=== PATIENT | male | born 1970 | race Caucasian/White ===

== ENCOUNTER 2024-02-21 12:13 | Emergency (ER) | payer OTHER ==
--- OUTSIDE RECORDS SUMMARY | 2024-02-21 12:15 | XMS REPORT | Continuity of Care Document ---
Author Name Unknown Address [address] [facility] [address]. [address] [place] [address] [facility] thconnect Address [address] [facility]. 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 Role Phone Roseline JACOB, Forrest Primary Care Physician Roseline JACOB, Forrest Attending Clinician [phone] FORREST DUKES Attending Clinician KATHRYN Adam Attending Clinician Unavailable Xavier ZUNIGA, Rocio Long Attending Clinician BRAYDEN Levy Attending Clinician Unavailable Payers Payer Name Policy Type Policy Number Effective Date Expirati on Date Source [employer] ACO COMM [id number] 2019 00:00:00 [employer] O [id number] 2019 00:00:00 Allergies, Adverse Reactions, Alerts Allergy Name Allergy Type Status Severity Reaction(s) Onset Date Inactive Date Treating Clinician Comments Source NO KNOWN ALLERGIE S SYSTEMIC Active [facility] NO KNOWN ALLERGIE S Drug Class Active [facility] NO KNOWN ALLERGIE S SYSTEMIC Active [facility] ALLERGIE S NOT ON FILE SYSTEMIC Active [facility] NO KNOWN ALLERGIE S SYSTEMIC Active [facility] Social History Social Habit Start Date Stop Date Quantity Comments Source Gender identity 2023-10-15 07:11:58 Identifies as male gender (finding) Leena Delgado Sexual orientation [facility] Sex Assigned At [facility] Tobacco use and exposure 2024-01-20 00:00:00 2024-01-20 00:00:00 Smokeless tobacco non-user [facility] Alcoholic beverage intake 2024-01-20 00:00:00 2024-01-20 00:00:00 Lifetime non-drinker (finding) [facility] History of Social function 2024-01-20 00:00:00 2024-01-20 00:00:00 [facility] Smoking Status Start Date Stop Date Source Unknown if ever [facility] Never smoked tobacco [facility] Medications Ordered Medication Name Filled Medication Name Start Date Stop Date Current Medication? Ordering Clinician Indication Dosage Frequency Signature (SIG) Comments Components Source lisinopril (Prinivil) 20 MG tablet lisinopril (Prinivil) 20 MG tablet 01-19 00:00: 00 Yes [id number] 20mg QD Take 1 tablet by mouth 1 time each day. [facility] Immunizations Ordered Immunization Name Filled Immunization Name Date Status Comments Source Zoster, Recombinant Zoster, Recombinant 00:00:00 Completed [facility] Moderna COVID-19 Vaccine Moderna COVID-19 Vaccine 2021-04-17 00:00:00 Completed Moderna COVID-19 Vaccine Moderna COVID-19 Vaccine 2021-03-20 00:00:00 Completed Tdap Tdap 2016-07-25 00:00:00 Completed [facility] Vital Signs Vital Name Observation Time Observation Value Comments S clara Systolic blood pressure 2024-01-20 09:12:00 159 mm[Hg] [facility] Diastolic blood pressure 2024-01-20 09:12:00 93 mm[Hg] [facility] Heart rate 2024-01-20 09:12:00 65 /min [facility] Body temperature 2024-01-20 09:12:00 36.72 Catherine [facility] Body height 2024-01-20 09:12:00 172.7 cm [facility] Body weight 2024-01-20 09:12:00 93.214 kg [facility] BMI 2024-01-20 09:12:00 31.25 kg/m2 [facility] Systolic blood pressure 2024-01-20 09:12:00 159 mm[Hg] [facility] Diastolic blood pressure 2024-01-20 09:12:00 93 mm[Hg] [facility] Heart rate 2024-01-20 09:12:00 65 /min [facility] Body temperature 2024-01-20 09:12:00 36.72 Catherine [facility] Body height 2024-01-20 09:12:00 172.7 cm [facility] Body weight 2024-01-20 09:12:00 93.214 kg [facility] BMI 2024-01-20 09:12:00 31.25 kg/m2 [facility] Procedures Procedure Date / Time Performed Performing Clinician Source PSA 2024-01-20 00:00:00 [facility] Cologuard? colon cancer screening 2024-01-20 00:00:00 [facility] Hemoglobin A1c 2024-01-20 00:00:00 Jakob delgadillo [facility] Comprehensive Metabolic Panel 2024-01-20 00:00:00 [facility] Complete Blood Count w/Diff and Platelet 2024-01-20 00:00:00 [facility] Lipid Panel w/calculated LDL 2024-01-20 00:00:00 [facility] Hepatitis C Antibody w/HCV RNA PCR if Indicated 2024-01-20 00:00:00 [facility] Encounters Start Date/Time End Date/Time Encounter Type Admission Type Attending [facility] Care Department Encounter ID Source 2024-01-20 09:00:00 2024-01-20 09:45:47 Consult Forrest Dukes [facility] [id number] Ranjana lusi [facility] 2024-01-20 08:59:47 2024-01-20 09:45:47 Outpatient Elective [facility] [id number] [facility] 2021-04-17 00:00:00 2021-04-17 00:00:00 Outpatient [facility] [id number] [facility] 2021-03-20 00:00:00 2021-03-20 00:00:00 Outpatient [facility]OVID[facility] [id number] [facility] 2020-01-23 16:45:00 2020-01-23 16:45:00 Outpatient R [facility] [id number] [facility] 2020-01-22 11:30:00 2020-01-22 11:30:00 Outpatient R [facility] [id number] [facility] 2020-01-18 09:45:00 2020-01-18 09:45:00 Outpatient [facility] [id number] [facility] 2020-01-14 11:30:00 2020-01-14 11:30:00 Outpatient R KATHRYN AGUIRRE [facility] [id number] [facility] 2020-01-14 11:30:00 2020-01-14 11:30:00 Outpatient [facility] [id number] [facility] 2020-01-02 00:00:00 2020-01-02 00:00:00 Telephone Rocio Park [facility] [id number] [facility] 2020-01-01 12:15:00 2020-01-01 12:15:00 Outpatient BRAYDEN LUKE [facility] [id number] [facility] Notes Date/Time Note Provider Source 2024-01-20 09:47:43 [id number] KPJ2ZzLJsdIRdas1v6M Djy9QTeJR7ngF210EXejCLxn8KapSMGbIz27117 10-29-27T09:47:43 * + +| Reason | Comments |+ + ==+| Annual Exam | Physical Exam, fasting. |+ + --+96688-5Vcwotm for VisitLNReason for [id number] 2.2.12AVAvailable for patient vinaZplpnlxCoetxctmtLLKZy15 Section NarrativeNARRATIVEFormatted C-CDA narrative textMHIEEPICMemorial Wdmvbvb049 [facility] [id number] RPZLJFI8228-34-43B79:47:43 [facility] 2024-01-20 09:47:43 [id number] od4a9X9P+52x6WeKbtg AJ07NDEEKiq6/cq3aR8H2ZckBnxlPIvawPj2907 10-29-27T09:47:43 * Forrest Dukes MD - 01/20/2024 9:00 AM CDT Subjective Patient ID: Adrienne Calixto is a 53 y.o. male who presents for Annual Exam (Physical Exam, fasting. ). HPI 53-year-old male past medical history hypertension, gout presents today for physical. Patient also wanted to establish care for hypertension. Was previously on metoprolol but discontinued due to worsening gout?. 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 Endorses father with history of heart attack at age of 74, patient follows a regular diet ,utilizes his job for exercise Review of Systems Constitutional Symptoms: no fever, no fatigue Cardiovascular: no chest pain, no SOB Respiratory:, no cough, Gastrointestinal: no NVD, no constipation, no abdominal pain Genitourinary: no dysuria, no incontinence Musculoskeletal: no myalgia Integumentary: no rash Neurological: no weakness, no headache Objective Physical Exam VITALS: Reviewed. WEIGHT/BMI reviewed. GEN: Healthy appearing, well-developed PSYCH: Good Judgment. AOx3. CV: RRR, no m/r/g. LUNGS: CTAB HEENT: No palpable thyroid nodules appreciated Abdomen: Normoactive bowel sound nontender palpation all quadrants Assessment & Plan Physical exam Continue adequate diet and exercise - Up-to-date with Tdap vaccination - Pending labs [PSA, A1c, CBC, CMP, lipid panel and one-time hep C screen] Orders: PSA; Future Hemoglobin A1c; Future Comprehensive Metabolic Panel; Future Complete Blood Count w/Diff and Platelet; Future Lipid Panel w/calculated LDL; Future Hepatitis C Antibody w/HCV RNA PCR if Indicated; Future Primary hypertension -Start patient on lisinopril 20 mg p.o. daily - Blood pressure log follow-up 6 weeks Orders: lisinopril (Prinivil) 20 MG tablet; Take 1 tablet by mouth 1 time each day. Need for vaccination - Pending shingles vaccination #1Orders: Zoster, Recombinant (Shingrix) Colon cancer screening - Pending Cologuard Orders: Cologuard? colon cancer screening; Future 85091-1Pyivgbi of Present IllnessLNProgress [id number] A5746AXRotduelae for patient dznsZaeslrrBfcoppkjoXYVXd10 Section NarrativeNARRATIVEFormatted C-CDA narrative textMHIEEPICMemorial Gnryxry285 [facility] [id number] FETSYFC0928-78-12E73:47:43 [facility] 2024-01-20 09:47:43 [id number] qKycYBbXv1pqD8uzOFc pNeR0rM2RNXe3QxjLZp6FkhefxOs4MaQ5uo8222 10-29-27T09:47:43Upcoming Encounters+ +--- + + + +| Date | Type | Department | Care Team (Latest Contact Info) | Description |+ + ==+ + ========+ +| 02/24/2024 9:20 AM CDT | Office Visit | [facility] | Forrest Dukes MD | || | | | | || | | [address] [facility] | [address] [facility] [address] | || | | | | || | | [place] [address] | [place] [address] | || | | | | || | | [phone] | | || | | | | || | | | | |+ + --+ + --------+ +Scheduled Orders+ +------+ +--- + -+| Name | Type | Priority | Associated Diagnoses | Order Schedule |+ +======+ +======== + +| PSA | Lab | Routine | Physical exam | Expected: 01/20/2024 (Approximate), Expires: 01/19/2025 |+ +------+ +-------- + +| Cologuard? colon cancer screening | Lab | Routine | Colon cancer screening | Expected: 01/20/2024 (Approximate), Expires: 01/19/2025 |+ +------+ +-------- + +| Hemoglobin A1c | Lab | Routine | Physical exam | Expected: 01/20/2024 (Approximate), Expires: 01/19/2025 |+ +------+ +-------- + +| Comprehensive Metabolic Panel | Lab | Routine | Physical exam | Expected: 01/20/2024 (Approximate), Expires: 01/19/2025 |+ +------+ +-------- + +| Complete Blood Count w/Diff and Platelet | Lab | Routine | Physical exam | Expected: 01/20/2024 (Approximate), Expires: 01/19/2025 |+ +------+ +-------- + +| Lipid Panel w/calculated LDL | Lab | Routine | Physical exam | Expected: 01/20/2024 (Approximate), Expires: 01/19/2025 |+ +------+ +-------- + +| Hepatitis C Antibody w/HCV RNA PCR if Indicated | Lab | Routine | Physical exam | Expected: 01/20/2024 (Approximate), Expires: 01/19/2025 |+ +------+ +-------- + ++-- + + + +| Health Maintenance | Due Date | Last Done | Comments |+ ====+ + +======== +| CT Colonography | 1972 | | |+ ----+ + +-------- +| Colonoscopy | 1972 | | |+ ----+ + +-------- +| Colorectal Cancer Screening | 1972 | | |+ ----+ + +-------- +| FIT-DNA | 1972 | | |+ ----+ + +-------- +| FIT | 1972 | | |+ ----+ + +-------- +| FOBT | 1972 | | |+ ----+ + +-------- +| Sigmoidoscopy | 1972 | | |+ ----+ + +-------- +| Hepatitis B Vaccines (1 of 3 - 19+ 3-dose series) | 1991 | | |+ ----+ + +-------- +| Zoster Vaccines (2 of 2) | 03/16/2024 | 01/20/2024 | |+ ----+ + +-------- +| Influenza Vaccine (Season Ended) | 03/25/2024 | | |+ ----+ + +-------- +| DTaP/Tdap/Td Vaccines (2 - Td or Tdap) | 07/25/2026 | 07/25/2016 | |+ ----+ + +-------- +| Lipid Panel | 07/23/2027 | 07/23/2022 | |+ ----+ + +-------- +| HIB Vaccines | Aged Out | | No longer eligible based on patient's age to complete this topic |+ ----+ + +-------- +| HPV Vaccines | Aged Out | | No longer eligible based on patient's age to complete this topic |+ ----+ + +-------- +| Hepatitis A Vaccines | Aged Out | | No longer eligible based on patient's age to complete this topic |+ ----+ + +-------- +| IPV Vaccines | Aged Out | | No longer eligible based on patient's age to complete this topic |+ ----+ + +-------- +| Meningococcal Vaccine | Aged Out | | No longer eligible based on patient's age to complete this topic |+ ----+ + +-------- +| Pneumococcal Vaccine: Pediatrics (0 to 5 Years) and At-Risk Patients (6 to 64 | Aged Out | | No longer eligible based on patient's age to complete this topic || Years) | | | |+ ----+ + +-------- +| Rotavirus Vaccines | Aged Out | | No longer eligible based on patient's age to complete this topic |+ ----+ + +-------- +08811-0Ikxp of TreatmentLNPlan of [id number] [id number]|2.16.840.1.956122.10. 20.22.2.10AVAvailable for patient ilukUcnlmfsEcwxswkqhLMPAg29 Section NarrativeNARRATIVEFormatted C-CDA narrative textMHIEEPICMemorial [address] [id number] YMISCYW4262-35-61L15:47:43 [facility] 09:47:43 [id number] +XH8e5s1PFqWS0rKQW3 WvKcQbuDlQZ2ENxDzeBjBM/8Mp2Ek3npdpCr699 10-29-27T09:47:43+ +| Diagnosis |+ ===+| Physical exam - Primary || || Unspecified general medical examination |+ ---+| Primary hypertension || || Unspecified essential hypertension |+ ---+| Need for vaccination || || Need for prophylactic vaccination and inoculation against unspecified single || disease |+ ---+| Colon cancer screening || || Special screening for malignant neoplasms, colon |+ ---+21813-6NuczitsoihxACWzllp LazhdkxinWPH81533513-61LP-2365-4883-435 F3HVD9380VVGggtamaeh for patient wpjgZadpyyfIwhtrppulKGRVl84 Section NarrativeNARRATIVEFormatted C-CDA narrative textMHIEEPICMemorial Cofcbrg055 [place] LeaJzKyqmetvFduczpfYORO3339525753VVTFQJGKI NMDYEFM3756-95-80Z40:47:43 [facility] 2024-01-20 09:47:43 [id number]+GEx6J soaYPzbLzbJPUV6C2LJ Kqec+tHiMOV5U/CQfupS7LMqpLBwN5nIdY4P434 10-29-27T09:47:43+ ---------+ + +------- -----+ +| 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 | Relationship | Specialty | Start Date | End Date |+ +===== += + +========= =+| Remedios Ramirez MD | PCP - [employer] Whole SI Attributed Provider | | 10/22/22 | || | | | | || | | | | || | | | | || [address] | | | | || | | | | || [place] [address] | | | | || | | | | || | | | | || | | | | || | | | | |+ +----- +- + +--------- -+| Forrest Dukes MD | PCP - General | Family Medicine | 01/12/24 | || | | | | || | | | | || | | | | || [address] [facility] [address] | | | | || | | | | || [place] [address] | | | | || | | | | || | | | | || | | | | || | | | | |+ +----- +- + +--------- -+98539-7Ynrgwvl Care team informationLNCare [id number] [id number]|2.16.840.1.894654.10.20.2 2.2.500AVAvailable for patient qczpYktexeiEqgchjqchGOEMs94 Section NarrativeNARRATIVEFormatted C-CDA narrative textMHIEEPICMemorial Atusiha366 Arjun Diaz[id number] NAQBBBY0088-58-31H89:47:43 [facility]"
[2024-02-21] MEDS ORDERED: NA CHLORIDE 0.9% 2,000 ML ONE (12:43)
[2024-02-21 13:29] LABS: Absolute Lymphocytes (CBC) 1.7 K/uL (0.7-4.9); Absolute Monocytes 0.7 K/uL (0.1-1.3); Absolute Neutrophil 6.9 K/uL (1.8-8.0); Basophils % 0.3 % (0-1.3); Eosinophils % 0.5 % (0-4.4); Hematocrit 36.1 % (39.6-49.0); Hemoglobin 12.9 g/dL (13.6-17.9); MCH 31.2 pg (27.0-35.0); MCHC 35.7 g/dL (32.0-36.0); MCV 87.4 fL (80-100); MPV 7.2 fL (7.6-11.3); Monocytes % 7.2 % (3.3-12.3); Nucleated Red Blood Cells % 0.2 % (0-0); Platelets 263 thou/uL (152-406); RBC Red Blood Cell Count 4.13 M/uL (4.33-5.43); Red Cell Distribution Width 12.8 % (12.1-15.2)
[2024-02-21 13:43] LABS: Albumin 4.1 g/dL (3.4-5.0); Albumin/Globulin Ratio 1.3 (1.1-1.8); Anion Gap 10.9 mEq/L (5.0-15.0); Bilirubin Direct 0.2 mg/dL (0-0.2); Bilirubin Indirect, Calculated 0.8 mg/dL (0.2-0.8); Globulin 3.2 g/dL (2.3-3.5); Magnesium 2.4 mg/dL (1.6-2.4); Potassium 3.9 mEq/L (3.5-5.1); Protein, Total 7.3 g/dL (6.4-8.2)
[2024-02-21 13:48] LABS: Specific Gravity < 1.005 (1.005-1.030); Sqamous Epithelial None Seen /HPF (None Seen); Urine Bacteria <20 /HPF (<20); Urine Bilirubin NEGATIVE (Negative); Urine Blood Negative (Negative); Urine Clarity Turbid (Clear); Urine Color Colorless (Yellow); Urine Culture Reflex Order NOT NEEDED; Urine Glucose NEGATIVE (Negative); Urine Ketones NEGATIVE (Negative); Urine Microscopic Reflex YN ORDER UMIC; Urine Nitrite NEGATIVE (Negative); Urine Protein NEGATIVE (Negative); Urine RBC <5 /HPF (None Seen); Urine Urobilinogen Normal (Normal); Urine WBC <5 /HPF (<5)
--- NOTE | 2024-02-21 14:50 | RAD REPORT ---
EXAM DESCRIPTION: Tammi Single View02/21/2024 1:50 pm CLINICAL HISTORY: DYSPNEA COMPARISON: No comparisons TECHNIQUE: Portable AP view of the chest. FINDINGS: The lungs are clear. No pneumothorax or effusion. The cardiomediastinal contours are unre markable. IMPRESSION: No acute cardiopulmonary process.
--- NOTE | 2024-02-21 15:19 | EDPHYS ---
Physician Documentation [facility] Name: Galen Millard Age: 53 yrs Sex: Male : 1970 Arrival Date: 02/21/2024 Time: 12:13 Bed Treatment Private MD: ED Physician Abraham Bob HPI: 02/20 15:11 This 53 yrs old Male presents to ER via EMS with complaints of over heated, alicia on roof in heat, weak , dizzy. 15:11 overheated outside. Onset: The symptoms/episode began/occurred just prior to arrival. alicia Severity of symptoms: At their worst the symptoms were moderate in the emergency department the symptoms are unchanged. The patient has experienced similar episodes in the past, a few times. Historical: - Allergies: 12:38 No Known Allergies; me1 - PMHx: 12:38 Hypertensive disorder; me1 - PSHx: 12:38 None; me1 - Immunization history:: Adult Immunizations up to date. - Infectious Disease History:: Denies. - Social history:: Smoking status: Patient denies any tobacco usage or history of. - Family history:: not pertinent. ROS: 15:11 Constitutional: Negative for fever, chills, and weight loss, Eyes: Negative for injury, alicia pain, redness, and discharge, ENT: Negative for injury, pain, and discharge, Neck: Negative for injury, pain, and swelling, Cardiovascular: Negative for chest pain, palpitations, and edema, Respiratory: Negative for shortness of breath, cough, wheezing, and pleuritic chest pain, Abdomen/GI: Negative for abdominal pain, nausea, vomiting, diarrhea, and constipation, Back: Negative for injury and pain, : Negative for injury, bleeding, discharge, and swelling, MS/Extremity: Negative for injury and deformity, Skin: Negative for injury, rash, and discoloration, Psych: Negative for depression, anxiety, suicide ideation, homicidal ideation, and hallucinations, Allergy/Immunology: Negative for hives, rash, and allergies, Endocrine: Negative for neck swelling, polydipsia, polyuria, polyphagia, and marked weight changes, Hematologic/Lymphatic: Negative for swollen nodes, abnormal bleeding, and unusual bruising, 15:11 Neuro: Positive for weakness, Exam: 15:11 Constitutional: This is a well developed, well nourished patient who is awake, alert, alicia and in no acute distress. Head/Face: Normocephalic, atraumatic. Eyes: Pupils equal round and reactive to light, extra-ocular motions intact. Lids and lashes normal. Conjunctiva and sclera are non-icteric and not injected. Cornea within normal limits. Periorbital areas with no swelling, redness, or edema. ENT: Nares patent. No nasal discharge, no septal abnormalities noted. Tympanic membranes are normal and external auditory canals are clear. Oropharynx with no redness, swelling, or masses, exudates, or evidence of obstruction, uvula midline. Mucous membranes moist. Neck: Trachea midline, no thyromegaly or masses palpated, and no cervical lymphadenopathy. Supple, full range of motion without nuchal rigidity, or vertebral point tenderness. No Meningismus. Chest/axilla: Normal chest wall appearance and motion. Nontender with no deformity. No lesions are appreciated. Cardiovascular: Regular rate and rhythm with a normal S1 and S2. No gallops, murmurs, or rubs. Normal PMI, no JVD. No pulse deficits. Respiratory: Lungs have equal breath sounds bilaterally, clear to auscultation and percussion. No rales, rhonchi or wheezes noted. No increased work of breathing, no retractions or nasal flaring. Abdomen/GI: Soft, non-tender, with normal bowel sounds. No distension or tympany. No guarding or rebound. No evidence of tenderness throughout. Back: No spinal tenderness. No costovertebral tenderness. Full range of motion. Male : Normal genitalia with no discharge or lesions. Skin: Warm, dry with normal turgor. Normal color with no rashes, no lesions, and no evidence of cellulitis. MS/ Extremity: Pulses equal, no cyanosis. Neurovascular intact. Full, normal range of motion. Neuro: Awake and alert, GCS 15, oriented to person, place, time, and situation. Cranial nerves II-XII grossly intact. Motor strength 5/5 in all extremities. Sensory grossly intact. Cerebellar exam normal. Normal gait. Psych: Awake, alert, with orientation to person, place and time. Behavior, mood, and affect are within normal limits. 15:11 ECG was reviewed by the Attending Physician. Vital Signs: 12:35 BP 135 / 91; Pulse 79; Resp 16; Temp 98.1; Pulse Ox 96% ; Weight 92.99 kg; Height 5 ft. me1 9 in. ; Pain 0/10; 13:30 BP 136 / 89; Pulse 74; Resp 16; Pulse Ox 100% ; me1 14:29 BP 146 / 92; Pulse 81; Resp 16; Pulse Ox 100% on R/A; me1 15:43 BP 148 / 87; Pulse 76; Resp 16; Temp 98.1; Pulse Ox 100% ; me1 12:35 Body Mass Index 30.27 (92.99 kg, 175.26 cm) me1 12:35 Pain Scale: Adult me1 Mary Coma Score: 15:11 Eye Response: spontaneous(4). Motor Response: obeys commands(6). Verbal Response: alicia oriented(5). Total: 15. MDM: 12:25 Patient medically screened. alicia 15:19 Differential Diagnosis altered mental status, sepsis, flu. Data reviewed: vital signs, [facility] nurses notes, lab test result(s), EKG, radiologic studies, plain films. Consideration of Admission/Observation Escalation of care including admission/observation considered. I considered the following discharge prescriptions or medication management in the emergency department Medications were administered in the Emergency Department. See MAR. Independent interpretation of the following test(s) in the Emergency Department EKG: See my EKG interpretation above. Test considered but Not performed: CT: no ct head , no stone. Historians other than the Patient: EMS: ems well informed. Care significantly affected by the following chronic conditions: Hypertension. Counseling: I had a detailed discussion with the patient and/or guardian regarding the historical points, exam findings, and any diagnostic results supporting the discharge/admit diagnosis, lab results, radiology results, the need for outpatient follow up, for definitive care, a family practitioner. 02/20 12:26 Order name: Basic Metabolic Panel; Complete Time: 14:14 [facility] 02/20 12:26 Order name: CBC with Diff; Complete Time: 14:14 [facility] 02/20 12:26 Order name: LFT's; Complete Time: 14:14 [facility] 02/20 12:26 Order name: Magnesium; Complete Time: 14:14 [facility] 02/20 12:26 Order name: NT PRO-BNP; Complete Time: 14:14 [facility] 02/20 12:26 Order name: Troponin HS; Complete Time: 14:14 [facility] 02/20 12:26 Order name: Urinalysis w/ reflexes; Complete Time: 14:14 [facility] 02/20 12:26 Order name: CPK; Complete Time: 14:14 [facility] 02/20 12:26 Order name: XRAY Chest (1 view); Complete Time: 15:08 [facility] 02/20 12:26 Order name: Cardiac monitoring; Complete Time: 13:15 [facility] 02/20 12:26 Order name: EKG - Nurse/Tech; Complete Time: 13:15 [facility] 02/20 12:26 Order name: IV Saline Lock; Complete Time: 12:43 [facility] 02/20 12:26 Order name: Labs collected and sent; Complete Time: 13:00 [facility] 02/20 12:26 Order name: O2 Per Protocol; Complete Time: 12:43 [facility] 02/20 12:26 Order name: O2 Sat Monitoring; Complete Time: 12:43 [facility] 02/20 14:15 Order name: PO challenge: gatorade; Complete Time: 14:26 [facility] EC:11 Rate is 71 beats/min. Rhythm is regular. QRS [place] is Normal. [place] interval is normal. QRS alicia interval is normal. QT interval is normal. No Q waves. T waves are Normal. No ST changes noted. Clinical impression: Normal ECG and No evidence of ischemia. Interpreted by me. Reviewed by me. Administered Medications: 13:00 Drug: NS 0.9% IV 1000 ml IV at 1 bolus Per protocol; 1000 mL bolus Route: IV; Rate: 1 me1 bolus; Site: right antecubital; 14:25 Follow up: Response: No adverse reaction; IV Status: Completed infusion; IV Intake: me1 1000ml 13:00 Drug: NS 0.9% IV 1000 ml IV at 1 bolus Per protocol; 1000 mL bolus Route: IV; Rate: 1 me1 bolus; Site: right antecubital; 15:43 Follow up: Response: No adverse reaction; IV Status: Completed infusion; IV Intake: me1 1000ml Disposition Summary: 02/21/24 15:19 Discharge Ordered Notes: Location: Home alicia Problem: new alicia Symptoms: have improved alicia Condition: Stable alicia Diagnosis - Heat exhaustion, unspecified alicia - Dehydration alicia Followup: alicia - With: Private Physician - When: 2 - 3 days - Reason: Recheck today's complaints, Continuance of care, Re-evaluation by your physician Discharge Instructions: - Discharge Summary Sheet alicia - Dehydration, Adult alicia - Hyponatremia, Hyda-rl-Tghs alicia - Dehydration, Adult, Hzud-oh-Zino alicia - Rehydration, Adult alicia - Dehydration, Elderly, [id number]-Gjvv alicia Forms: - Medication Reconciliation Form alicia - Antibiotic Education alicia - Prescription Opioid Use alicia - Patient Portal Instructions alicia - Leadership Thank You Letter alicia - Work release form ll1 Signatures: Dispatcher [employer] EDMS Abraham Bob MD MD cha Eddleman, Michelle RN RN me1 Corrections: (The following items were deleted from the chart) 12: 12:26 BASIC METABOLIC PANEL+C.LAB.BRZ ordered. EDMS EDMS 12: 12:26 CBC+H.LAB.BRZ ordered. EDMS EDMS 12: 12:26 HEPATIC FUNCTION+C.LAB.BRZ ordered. EDMS EDMS 12: 12:26 MAGNESIUM+C.LAB.BRZ ordered. EDMS EDMS 12: 12:26 PROBNP+C.LAB.BRZ ordered. EDMS EDMS 12: 12:26 Troponin High Sensitivity+C.LAB.BRZ ordered. EDMS EDMS 12: 12:26 Urinalysis+U.LAB.BRZ ordered. EDMS EDMS 12: 12:26 CREATINE PHOSPHOKINASE+C.LAB.BRZ ordered. EDMS EDMS 12: 12:26 Chest Single View+RAD.RAD.BRZ ordered. EDMS EDMS
--- NOTE | 2024-02-21 15:19 | ER ---
Nurse's Notes 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 me1 Fall from standing with LOC for just a few seconds per a coworker. EMS established a 20g RAC, BGL 111. Vitals wnl. Coronavirus screen: Vaccine status: Patient reports receiving the 2nd dose of the covid vaccine. Ebola Screen: No symptoms or risks identified at this time. Initial Sepsis Screen: Does the patient meet any 2 criteria? No. Patient's initial sepsis screen is negative. Does the patient have a suspected source of infection? No. Patient's initial sepsis screen is negative. Risk Assessment: Do you want to hurt yourself or someone else? Patient reports no desire to harm self or others. Onset of symptoms was February 21, 2024. Care prior to arrival: IV initiated. 20 GA, in the right antecubital area, Glucose check: 111. 12:35 Method Of Arrival: EMS: [facility] 12:35 Acuity: STACY 3 me1 Triage Assessment: 12:38 General: Appears comfortable, well groomed, well developed, well nourished, Behavior is me1 calm, cooperative, appropriate for age, Reports syncopal episode with LOC while working on a roof. Pain: Denies pain. EENT: No signs and/or symptoms were reported regarding the EENT system. Neuro: Level of Consciousness is awake, alert, obeys commands, Oriented to person, place, time, situation, Appropriate for age. Neuro: Reports a syncopal episode. Cardiovascular: Patient's skin is warm and dry. Respiratory: Airway is patent Trachea midline Respiratory effort is even, unlabored, Respiratory pattern is regular, symmetrical. GI: No signs and/or symptoms were reported involving the gastrointestinal system. : No signs and/or symptoms were reported regarding the genitourinary system. Derm: Skin is intact, is healthy with good turgor, Skin is pink, warm \T\ dry. Musculoskeletal: No signs and/or symptoms reported regarding the musculoskeletal system. Historical: - Allergies: 12:38 No Known Allergies; me1 - PMHx: 12:38 Hypertensive disorder; me1 - PSHx: 12:38 None; me1 - Immunization history:: Adult Immunizations up to date. - Infectious Disease History:: Denies. - Social history:: Smoking status: Patient denies any tobacco usage or history of. - Family history:: not pertinent. Screenin:[facility] ED Fall Risk Assessment (Adult) History of falling in the last 3 months, me1 including since admission Yes- single mechanical fall (1 pt) Confusion or Disorientation No (0 pts) Intoxicated or Sedated No (0 pts) Impaired Gait No (0 pts) Mobility Assist Device Used No (0 pt) Altered Elimination No (0 pt) Score/Fall Risk Level 0 - 2 = Low Risk Maintained a safe environment, Provided non-skid footwear, Hourly rounding (assess needs \T\ fall precautionary measures) done. Abuse screen: Denies threats or abuse. Nutritional screening: No deficits noted. Tuberculosis screening: No symptoms or risk factors identified. Assessment: 12:40 General: see triage assessment. . me1 Vital Signs: 12:35 BP 135 / 91; Pulse 79; Resp 16; Temp 98.1; Pulse Ox 96% ; Weight 92.99 kg; Height 5 ft. me1 9 in. ; Pain 0/10; 13:30 BP 136 / 89; Pulse 74; Resp 16; Pulse Ox 100% ; me1 14:29 BP 146 / 92; Pulse 81; Resp 16; Pulse Ox 100% on R/A; me1 15:43 BP 148 / 87; Pulse 76; Resp 16; Temp 98.1; Pulse Ox 100% ; me1 12:35 Body Mass Index 30.27 (92.99 kg, 175.26 cm) me1 12:35 Pain Scale: Adult me1 Mary Coma Score: 15:11 Eye Response: spontaneous(4). Motor Response: obeys commands(6). Verbal Response: alicia oriented(5). Total: 15. ED Course: 12:24 Patient arrived in ED. bd 12:24 Abraham Bob MD is Attending Physician. alicia 12:31 Chiqui Jameson RN is Primary Nurse. me1 12:38 Triage completed. me1 12:38 Arm band placed on Patient placed. me1 12:40 Patient has correct armband on for positive identification. Bed in low position. Call me1 light in reach. Side rails up X2. Provided Education on: POC. Verbalized understanding. . Client placed on continuous cardiac and pulse oximetry monitoring. NIBP monitoring applied. Pulse ox on. NIBP on. 12:40 No provider procedures requiring assistance completed. me1 12:40 Maintain EMS IV. Dressing intact. Good blood return noted. Site clean \T\ dry. Gauge \T\ me 1 site: 20g RAC. 13:00 Basic Metabolic Panel Sent. me1 13:00 CBC with Diff Sent. me1 13:00 LFT's Sent. me1 13:00 Magnesium Sent. me1 13:00 NT PRO-BNP Sent. me1 13:00 Troponin HS Sent. me1 13:00 CPK Sent. me1 13:41 Urinalysis w/ reflexes Sent. me1 13:41 Initial lab(s) drawn, by dc, sent to lab. Urine collected: clean catch specimen, clear. me1 13:52 XRAY Chest (1 view) In Process Unspecified. EDMS 15:44 IV discontinued, intact, bleeding controlled, No redness/swelling at site. Pressure me1 dressing applied. Administered Medications: 13:00 Drug: NS 0.9% IV 1000 ml IV at 1 bolus Per protocol; 1000 mL bolus Route: IV; Rate: 1 me1 bolus; Site: right antecubital; 14:25 Follow up: Response: No adverse reaction; IV Status: Completed infusion; IV Intake: me1 1000ml 13:00 Drug: NS 0.9% IV 1000 ml IV at 1 bolus Per protocol; 1000 mL bolus Route: IV; Rate: 1 me1 bolus; Site: right antecubital; 15:43 Follow up: Response: No adverse reaction; IV Status: Completed infusion; IV Intake: me1 1000ml Medication: 12:40 VIS not applicable for this client. me1 Intake: 14:25 IV: 1000ml; Total: 1000ml. me1 15:43 IV: 1000ml; Total: 2000ml. me1 Outcome: 15:19 Discharge ordered by . alicia 15:44 Discharged to home ambulatory, me1 15:44 Condition: stable 15:44 Discharge instructions given to patient, Instructed on discharge instructions, follow up and referral plans. Demonstrated understanding of instructions, follow-up care, 15:44 Patient left the ED. me1 Signatures: Dispatcher [employer] Charity Morejon Corey, MD MD cha Eddleman, Michelle, NADIA RN me1
[2024-02-21 16:39] VITALS: TEMP 98.1
[2024-02-21 16:40] VITALS: O2SAT 100
[2024-02-21 16:43] VITALS: BP 148/87
--- NOTE | 2024-02-22 11:46 | EKG ---
Test Date: 2024-02-21 Test Time: 13:11:01 Atmospheric Chemist: MEASUREMENT RESULTS: Intervals: Rate: 71 TX: 188 QRSD: 104 QT: 402 QTc: 436 [place]: P: 35 TX: 188 QRS: 1 T: 29 INTERPRETIVE STATEMENTS: Normal sinus rhythm Normal ECG No previous ECG available for comparison Electronically Signed On 02-22-24 11:43:29 CDT by Richard Patton
== END 2024-02-21 15:44 | disposition home or self-care (01) ==
LOC: ER 12:13
DX: T67.5XXA Heat exhaustion, unspecified, initial encounter (principal); E86.0 Dehydration
CPT/HCPCS: 85025; 81001; 80048; 36415; 83735; 82550; 80076; 84484; 83880; 71045; J7030; 93005; 96360; 96361; 99284